=== PATIENT | male | born 1985 | race Caucasian/White ===

== ENCOUNTER 2021-12-26 08:56 | Inpatient (IN) | payer OTHER ==
[~2021-12-26] VITALS: Ht 182.9 cm; Wt 64.9 kg
[2021-12-26 09:20] LABS: HEMOGLOBIN 18.2 gm/dl (14.0-17.5); RED BLOOD COUNT 5.52 M/UL (4.20-5.50); WHITE BLOOD COUNT 8.9 K/UL (4.5-11.0)
[2021-12-26 09:41] LABS: BUN/CREATININE RATIO 9 (0-10)
[2021-12-27 05:42] LABS: BUN/CREATININE RATIO 15 (0-10)
[2021-12-27 05:44] LABS: RED BLOOD COUNT 4.67 M/UL (4.20-5.50); WHITE BLOOD COUNT 5.6 K/UL (4.5-11.0)
[2021-12-28 07:40] LABS: BUN/CREATININE RATIO 11 (0-10)
[2021-12-28 08:31] LABS: HEMOGLOBIN 15.2 gm/dl (14.0-17.5); RED BLOOD COUNT 4.69 M/UL (4.20-5.50); WHITE BLOOD COUNT 5.2 K/UL (4.5-11.0)
[2021-12-29 05:50] LABS: BUN/CREATININE RATIO 8 (0-10)
[2021-12-29 08:22] LABS: HEMOGLOBIN 17.9 gm/dl (14.0-17.5); RED BLOOD COUNT 5.63 M/UL (4.20-5.50); WHITE BLOOD COUNT 4.9 K/UL (4.5-11.0)
[2021-12-30 06:27] LABS: BUN/CREATININE RATIO 13 (0-10)
[2022-01-02] MEDS ORDERED: CHLORDIAZEPOXID25 MG PO (14:48)
[2022-01-02] MEDS ORDERED: LIBRIUM CAP 2525 MG PO (16:06)
== END 2022-01-02 17:38 | disposition home or self-care (01) | DRG 897 ==
LOC: ER1 08:56 → CCU 10:45 → CDU 10:45 → CCU 13:45
PROVIDERS: Emergency Medicine; Internal Medicine; Internal Medicine Pulmonary Disease; Physician Assistant Medical; ADMIT Internal Medicine
DX: F10.131 Alcohol abuse with withdrawal delirium (principal); N17.9 Acute kidney failure, unspecified; E87.2 Acidosis; M48.54XA Collapsed vertebra, not elsewhere classified, thoracic region, initial encounter for fracture; E87.1 Hypo-osmolality and hyponatremia; Z20.822 Contact with and (suspected) exposure to COVID-19; I49.5 Sick sinus syndrome; E87.6 Hypokalemia; E87.5 Hyperkalemia; E86.9 Volume depletion, unspecified; K70.30 Alcoholic cirrhosis of liver without ascites; K70.10 Alcoholic hepatitis without ascites; F17.210 Nicotine dependence, cigarettes, uncomplicated; E83.42 Hypomagnesemia; D69.6 Thrombocytopenia, unspecified; B95.62 Methicillin resistant Staphylococcus aureus infection as the cause of diseases classified elsewhere; L98.499 Non-pressure chronic ulcer of skin of other sites with unspecified severity; Z59.00 Homelessness unspecified; Z83.3 Family history of diabetes mellitus
CPT/HCPCS: 36415; 71045; 80048; 80053; 80202; 80307; 81001; 82550; 82553; 83605; 83735; 83880; 84100; 84132; 84484; 85025; 85027; 85610; 87040; 87070; 87077; 87186; 87205; 93005; 96372; 96374; 96375; 99285; G0480; J1650; J2060; J2270; J2405; J2543; J2550; J3370; J3411; J3475; J3480; J3486; J7030; J7050; J7070; U0002